=== PATIENT | male | born 1970 | race African-American/Black ===

== ENCOUNTER → 2023-06-08 | Emergency (ER) | payer SELFPAY ==
[~2023-06-08] VITALS: Ht 180.3 cm; Wt 86.2 kg
[~2023-06-08] MED LIST: TAMS-12 PO
[2023-06-08 08:11] VITALS: BP 148/98; TEMP 98.1; O2SAT 99
== END | disposition home or self-care (01) ==
LOC: ER 06:15
DX: S39.93XA Unspecified injury of pelvis, initial encounter (principal); Z60.2 Problems related to living alone; V19.9XXA Pedal cyclist (driver) (passenger) injured in unspecified traffic accident, initial encounter; Y93.89 Activity, other specified; Y92.89 Other specified places as the place of occurrence of the external cause; Y99.8 Other external cause status
CPT/HCPCS: 76856-TC

== ENCOUNTER 2023-11-27 06:22 | Emergency (ER) | payer OTHER ==
[~2023-11-27] VITALS: Ht 182.9 cm; Wt 90.7 kg
[2023-11-27 06:30] VITALS: BP 145/115; TEMP 98.7; O2SAT 97
--- NOTE | 2023-11-27 06:30 | NUR ---
GABY FROM HOME C/C MEDREFILL FOR ALBUTERAL INHALER. DENIES SOB. PT A/OX4. TOLERATING R/A WELL WITH NO RESP DISTRESS. SAFETY MEASURES IN PLACE.
[2023-11-27] MEDS ORDERED: ALBU18HF2 INH (06:40)
--- NOTE | 2023-11-27 06:44 | NUR ---
Patient discharged to home in stable condition. Written and verbal after care instructions given. Patient verbalizes understanding of instruction.
== END 2023-11-27 06:45 | disposition home or self-care (01) ==
LOC: ER 06:27
DX: J45.909 Unspecified asthma, uncomplicated (principal); F15.10 Other stimulant abuse, uncomplicated; Z76.0 Encounter for issue of repeat prescription; Z60.2 Problems related to living alone; Z96.7 Presence of other bone and tendon implants

== ENCOUNTER 2023-12-27 16:44 | Emergency (ER) | payer OTHER ==
[~2023-12-27] VITALS: Ht 180.3 cm; Wt 90.7 kg
[~2023-12-27 16:44] MED LIST changes: +ALBU18HF2 INH
[2023-12-27] MEDS ORDERED: BACITRACIN ZINC OINT PACKET 1 EA PACKET TP ONE (17:38)
[2023-12-27] MEDS ORDERED: KETOROLAC TROMETHAMINE 15 MG/ML VIAL ONE (17:38)
[2023-12-27] MEDS: KETOROLAC TROMETHAMINE 15 MG/ML VIAL IV ONE (17:51)
[2023-12-27] MEDS: VANCOMYCIN 1 GM in IV D5W 250 ML IV ONE (17:51)
[2023-12-27] MEDS: BACITRACIN ZINC OINT PACKET 1 EA PACKET TP ONE (17:51)
[2023-12-27 17:58] LABS: BASOPHILS # (AUTO) 0.1 K/uL (0.0-0.2); BASOPHILS % (AUTO) 1.1 % (0.0-2.0); EOSINOPHILS # (AUTO) 0.2 K/uL (0.0-0.7); EOSINOPHILS % (AUTO) 2.2 % (0.0-6.0); HEMATOCRIT 38 % (39-51); HEMOGLOBIN 12.4 g/dL (13.5-17.5); LYMPHOCYTES # (AUTO) 2.2 K/uL (0.8-4.8); MEAN CORPUSCULAR HEMOGLOBIN 30 PG (26.0-33.0); MEAN CORPUSCULAR HGB CONC 33 g/dl (31.0-36.0); MEAN CORPUSCULAR VOLUME 91 fL (80-96); MONOCYTES # (AUTO) 1.1 K/uL (0.1-1.30); MONOCYTES % (AUTO) 12.4 % (2.0-12.0); NEUTROPHILS % (AUTO) 58.3 % (43.0-81.0); PLATELET COUNT (AUTO) 294 K/uL (150-450); RED BLOOD CELL COUNT(AUTO) 4.13 MIL/uL (4.5-6.0); WHITE BLOOD COUNT (AUTO) 8.5 K/uL (4.3-11.0)
[2023-12-27 18:16] LABS: LACTIC ACID 1.2 mmol/L (0.4-2.0)
[2023-12-27 18:19] LABS: CALCIUM, SERUM 8.5 mg/dL (8.5-10.1)
[2023-12-27] MEDS ORDERED: IBUP-1490 PO (19:46)
[2023-12-27] MEDS ORDERED: ACET-2605 PO (19:46)
[2023-12-27] MEDS ORDERED: CLIN150C16 PO (19:46)
[2023-12-27 19:57] VITALS: BP 134/88; TEMP 98.2; O2SAT 97
== END 2023-12-27 19:58 | disposition home or self-care (01) ==
LOC: ER 16:47
DX: S61.412A Laceration without foreign body of left hand, initial encounter (principal); L03.114 Cellulitis of left upper limb; R22.42 Localized swelling, mass and lump, left lower limb; J45.909 Unspecified asthma, uncomplicated; Z88.2 Allergy status to sulfonamides; W26.8XXA Contact with other sharp object(s), not elsewhere classified, initial encounter; Y93.89 Activity, other specified; Y92.89 Other specified places as the place of occurrence of the external cause; Y99.8 Other external cause status
CPT/HCPCS: 99284; 96365; 96375; 73130; 85025; 80048; 87040; 83605; 36415; J3370; A4223; J1885; J7060

== ENCOUNTER 2024-04-08 04:38 | Emergency (ER) | payer OTHER ==
[~2024-04-08 04:38] MED LIST changes: +ACET-2605 PO; +CLIN150C16 PO; +IBUP-1490 PO
== END 2024-04-08 07:08 | disposition left against medical advice (07) ==
LOC: ER 04:41
DX: Z53.21 Procedure and treatment not carried out due to patient leaving prior to being seen by health care provider (principal)

== ENCOUNTER 2024-05-03 08:43 | Emergency (ER) | payer OTHER ==
[~2024-05-03] VITALS: Ht 180.3 cm; Wt 83.9 kg
[2024-05-03 08:52] VITALS: BP 140/96; TEMP 98.3
[2024-05-03 09:15] LABS: BASOPHILS # (AUTO) 0.1 K/uL (0.0-0.2); BASOPHILS % (AUTO) 0.9 % (0.0-2.0); EOSINOPHILS # (AUTO) 0.2 K/uL (0.0-0.7); EOSINOPHILS % (AUTO) 2.5 % (0.0-6.0); HEMATOCRIT 39 % (39-51); HEMOGLOBIN 13.3 g/dL (13.5-17.5); LYMPHOCYTES # (AUTO) 1.7 K/uL (0.8-4.8); LYMPHOCYTES % (AUTO) 24.2 % (20.0-44.0); MEAN CORPUSCULAR HEMOGLOBIN 31 PG (26.0-33.0); MEAN CORPUSCULAR HGB CONC 34 g/dl (31.0-36.0); MEAN CORPUSCULAR VOLUME 89 fL (80-96); MONOCYTES # (AUTO) 0.7 K/uL (0.1-1.30); MONOCYTES % (AUTO) 9.4 % (2.0-12.0); NEUTROPHILS # (AUTO) 4.5 K/uL (1.8-8.9); PLATELET COUNT (AUTO) 273 K/uL (150-450); RED BLOOD CELL COUNT(AUTO) 4.36 MIL/uL (4.5-6.0); RED CELL DISTRIBUTION WIDTH 13.7 % (11.5-15.0); WHITE BLOOD COUNT (AUTO) 7.1 K/uL (4.3-11.0)
[2024-05-03 09:19] LABS: APPEARANCE,URINE CLEAR (CLEAR); BILIRUBIN,URINE NEGATIVE (NEGATIVE); BLOOD, URINE 2+ Ery/uL (NEGATIVE); COLOR,URINE YELLOW (YELLOW); KETONES,URINE TRACE mg/dL (NEGATIVE); LEUKOCYTE ESTERASE ,URINE NEGATIVE (NEGATIVE); NITRITE, URINE NEGATIVE (NEGATIVE); PROTEIN,URINE 1+ mg/dl (NEGATIVE); UGLUCOSE NEGATIVE (NEGATIVE)
[2024-05-03 09:22] LABS: ADD URINE CULTURE NO; BACTERIA,URINE Rare /HPF (None Seen); MUCUS,URINE Few /LPF (None Seen); SQUAMOUS EPITHELIAL CELL,UR Few /HPF (None Seen); WBC,URINE 0-2 /HPF (0-3)
[2024-05-03 09:27] LABS: CALCIUM, SERUM 8.5 mg/dL (8.5-10.1); CREATININE 1.2 mg/dL (0.6-1.3); POTASSIUM 3.6 mmol/L (3.5-5.1)
[2024-05-03 09:33] LABS: ALBUMIN 3.6 g/dL (3.4-5.0); BILIRUBIN,DIRECT 0.4 mg/dL (0.0-0.2); BILIRUBIN,TOTAL 2.8 mg/dL (0.2-1.0); TOTAL PROTEIN, SERUM 7.2 g/dL (6.4-8.2)
[2024-05-03] MEDS ORDERED: IBUP-1955 PO (10:38)
[2024-05-03] MEDS ORDERED: CYCL5TAB PO (10:38)
== END 2024-05-03 10:58 | disposition home or self-care (01) ==
LOC: ER 08:56
DX: S39.011A Strain of muscle, fascia and tendon of abdomen, initial encounter (principal); J45.909 Unspecified asthma, uncomplicated; R10.31 Right lower quadrant pain; Z88.2 Allergy status to sulfonamides; Z60.2 Problems related to living alone; X50.0XXA Overexertion from strenuous movement or load, initial encounter; Y93.89 Activity, other specified; Y92.89 Other specified places as the place of occurrence of the external cause; Y99.8 Other external cause status
CPT/HCPCS: 36415; 80048-TC; 80076-TC; 81001; 83690-TC; 85025-TC

== ENCOUNTER 2025-02-01 13:09 | Emergency (ER) | payer MEDICAID, OTHER ==
[~2025-02-01] VITALS: Ht 180.3 cm; Wt 82.1 kg
[~2025-02-01 13:09] MED LIST changes: +CYCL5TAB PO; +IBUP-1955 PO
[2025-02-01 13:26] VITALS: BP 152/91; TEMP 98.3; O2SAT 95
== END 2025-02-01 13:30 | disposition left against medical advice (07) ==
LOC: ER 13:14
DX: N43.3 Hydrocele, unspecified (principal); J45.909 Unspecified asthma, uncomplicated; Z88.2 Allergy status to sulfonamides; Z60.2 Problems related to living alone